=== PATIENT | male | born 1975 | race Two or more races ===

== ENCOUNTER 2017-05-23 13:28 | Emergency (ER) | payer MEDICAID ==
[~2017-05-23] VITALS: Ht 188 cm; Wt 131.5 kg
[2017-05-23 13:59] VITALS: BP 142/80
== END 2017-05-23 17:50 | disposition left against medical advice (07) ==
LOC: ER 13:28
DX: M25.571 Pain in right ankle and joints of right foot (principal); Z53.21 Procedure and treatment not carried out due to patient leaving prior to being seen by health care provider